=== PATIENT | female | born 1955 | race Caucasian/White ===

== ENCOUNTER → 2017-01-20 | Outpatient (CLI) | payer OTHER ==
[2017-01-20 06:42] LABS: MEAN CORPUSCULAR HEMOGLOBIN 32.3 pg (27.0-33.0); MEAN CORPUSCULAR HGB CONC 34.2 g/dl (32.0-36.5); MEAN CORPUSCULAR VOLUME 94.4 fl (80.0-96.0); RED CELL DISTRIBUTION WIDTH 11.5 % (11.5-14.5); WHITE BLOOD COUNT 8.5 K/mm3 (4.0-10.0)
[2017-01-20 07:12] LABS: ALBUMIN 3.7 GM/DL (3.2-5.2); ALBUMIN/GLOBULIN RATIO 1.37 (1.00-1.93); BILIRUBIN,TOTAL 0.3 MG/DL (0.2-1.0); CALCIUM LEVEL 8.4 MG/DL (8.8-10.2); CREATININE FOR GFR 1.01 MG/DL (0.55-1.02); FREE T4 1.04 NG/DL (0.76-1.46); GLOMERULAR FILTRATION RATE 59.1 (>45); POTASSIUM SERUM 4.2 MEQ/L (3.5-5.1); TOTAL PROTEIN 6.4 GM/DL (6.4-8.2)
== END ==
LOC: M LAB 06:00
PROVIDERS: ATTEND General Practice
DX: E78.00 Pure hypercholesterolemia, unspecified (principal); E55.9 Vitamin D deficiency, unspecified

== ENCOUNTER → 2017-06-27 | Outpatient (CLI) | payer OTHER ==
[~2017-06-27] MED LIST: COUM2.5T17 PO; FERR325T3 PO; LEVO25TA5 PO; LISI10TA4 PO; LUTE20TA PO; PERC5TAB12 PO; PROP60CA PO; PROZ20CA11 PO; SIMV40TA2 PO; VITA500T3 PO
[2017-06-27 11:50] LABS: MEAN CORPUSCULAR HEMOGLOBIN 30.8 pg (27.0-33.0); MEAN CORPUSCULAR HGB CONC 32.7 g/dl (32.0-36.5); RED CELL DISTRIBUTION WIDTH 11.6 % (11.5-14.5); WHITE BLOOD COUNT 3.7 10^3/uL (4.0-10.0)
--- NOTE | 2017-06-27 11:59 | REP ---
PA and lateral chest: There are no comparisons. The lung arreola are clear. Cardiac size is upper normal. The sendy, mediastinum, and bony thorax are unremarkable for patient age. Impression: Essentially negative PA and lateral chest. Signed by Prashant Singh MD 06/27/2017 11:51 A
[2017-06-27 12:02] LABS: INR 0.96
[2017-06-27 13:05] LABS: ALBUMIN 3.8 GM/DL (3.2-5.2); ALBUMIN/GLOBULIN RATIO 1.27 (1.00-1.93); ALKALINE PHOSPHATASE 99 U/L (45-117); ALT/SGPT 20 U/L (12-78); ANION GAP 3 MEQ/L (8-16); AST/SGOT 17 U/L (15-37); BILIRUBIN,TOTAL 0.6 MG/DL (0.2-1.0); BLOOD UREA NITROGEN 12 MG/DL (7-18); CALCIUM LEVEL 8.8 MG/DL (8.8-10.2); CARBON DIOXIDE LEVEL 33 MEQ/L (21-32); CHLORIDE LEVEL 106 MEQ/L (98-107); CREATININE FOR GFR 0.76 MG/DL (0.55-1.02); GLOMERULAR FILTRATION RATE > 60.0 (>45); GLUCOSE, FASTING 89 MG/DL (80-110); POTASSIUM SERUM 4.3 MEQ/L (3.5-5.1); SODIUM LEVEL 142 MEQ/L (136-145); TOTAL PROTEIN 6.8 GM/DL (6.4-8.2)
--- NOTE | 2017-06-27 20:20 | ECGEPIP ---
Stationary ECG Study [facility] Test Date: 2017-06-27 Pat Name: TARYN HAYWARD Department: Room: - Gender: F Singe Machine Operator: NIGEL : 1955 Requested By: Lili Monahan Order Number: [id number] Reading MD: Sonya Jennings Measurements Intervals [place] Rate: 56 P: 61 HI: 159 QRS: 2 QRSD: 88 T: 14 QT: 416 QTc: 404 Interpretive Statements SINUS BRADYCARDIA POOR R WAVE PROGRESSION NO PRIOR Electronically Signed On 06-27-2017 20:20:01 EDT by Sonya Jennings
== END ==
LOC: M ADMPAT 09:28
PROVIDERS: ATTEND Orthopaedic Surgery
DX: M17.11 Unilateral primary osteoarthritis, right knee (principal)

== ENCOUNTER 2017-07-10 07:30 | Inpatient (IN) | payer OTHER ==
[2017-06-27 10:14] VITALS: BP 162/90
--- NOTE | 2017-07-06 14:11 | HPE ---
DATE OF ADMISSION: 07/10/2017 ATTENDING PHYSICIAN: Lili Douglas MD DIAGNOSIS: Osteoarthritis right knee and right knee pain and stiffness. HISTORY: This is a pleasant 62-year-old female patient with progressively worsening right knee pain and stiffness. She failed to improve with conservative management. She has elected for surgery for her continued symptoms. She has pain with weightbearing activities and activities of daily living. She has consented for a right total knee arthroplasty by Dr. Douglas. X-rays of her knee are notable for end-stage degenerative changes of the left knee. ALLERGIES: Seafood. CURRENT MEDICATIONS: - lisinopril 10 mg one tablet once per day - propranolol ER 60 mg one tablet once per day - Zocor 10 mg one tablet at bedtime - Prozac 10 mg one tablet every day - [id number] vitamin D, vitamin B3 and a daily multilevel vitamin - Synthroid 88 mcg one tablet once per day MEDICAL HISTORY: Includes: Symptomatic osteoarthritis of the right knee. Hypothyroidism. Hypertension. B12 deficiency. Vitamin D deficiency. Depression. Elevated cholesterol. Anemia. SURGICAL HISTORY: Includes: Tonsillectomy. Mastectomy. Knee scope. Gastric bypass. SOCIAL HISTORY: She does not smoke. She occasionally uses alcohol. She is employed as a nurse. REVIEW OF SYSTEMS: Denies fever or chills. Denies chest pain, shortness breath or cough. Denies difficulty breathing. Denies abdominal pain. Denies nausea or vomiting. Has persistent pain in her right knee with weightbearing activities. Denies recent upper respiratory infection (URI) or urinary tract infection (UTI) symptoms. FAMILY HISTORY: Noncontributory. PHYSICAL EXAMINATION: Exam today reveals a well-nourished, well-developed alert female patient. Neck is supple without adenopathy or jugular venous distention (JVD). Lungs are clear to auscultation without rales or wheeze. Heart is regular rate and rhythm. Exam of the right knee reveals skin to be intact. No erythema, edema or ecchymosis. Patellar grind is irritable. Range of motion is irritable at the extremes of range of motion, but full range of motion knee on exam. Stable to varus and valgus stress. The skin is intact. No erythema, edema or ecchymosis. Abdomen bowel sounds are present. Current vital signs are height 64 inches, weight 184 pounds, temperature 97.3, blood pressure 130/68, pulse 60, respirations 12, BMI 31.3. LABORATORY DATA: Chest x-ray no acute cardiopulmonary process noted. EKG sinus trisha. WBC count of 3.7, RBC count of 4.1, hemoglobin 12.9, hematocrit 39.4, PT 12.9, INR 0.96. Urine culture no growth. Nasal culture normal darrell. Urinalysis within normal limits. Sed rate of 18, glucose 89, BUN 20, creatinine 0.76, sodium 142, potassium 4.3. IMPRESSION: Symptomatic osteoarthritis of right knee. PLAN: Consented for right total knee arthroplasty by Dr. Douglas.
[2017-07-10] VITALS (7 sets, daily range): BP systolic 128–160; BP diastolic 73–85
[~2017-07-10] VITALS: Ht 165.1 cm; Wt 81.6 kg
[~2017-07-10 07:30] MED LIST changes: -COUM2.5T17 PO; -PERC5TAB12 PO
[2017-07-10] MEDS ORDERED: ACETAMINOPHEN 500 MG TAB PO ONE (09:00)
[2017-07-10] MEDS ORDERED: LR 1,000 ML IV ONE (09:00)
[2017-07-10] MEDS ORDERED: LIDOCAINE 1% MDV 20ML VIAL SC ONE (09:00)
[2017-07-10] MEDS ORDERED: EPINEPHrine INJ 1 MG/ML 1ML AMP As Ordered ONE (09:40)
[2017-07-10] MEDS ORDERED: TRANEXAMIC ACID 100 MG/ML 10ML VIAL As Ordered ONE (09:40)
[2017-07-10] MEDS ORDERED: ceFAZolin 1GM INJ (J0690) As Ordered ONE (09:40)
[2017-07-10] MEDS ORDERED: BUPIVACAINE LIPOSOME/PF 1.3% 20 ML VIAL (13.3MG/ML)(EXPAREL) As Ordered ONE (09:41)
[2017-07-10] MEDS ORDERED: MIDAZOLAM INJ 2 MG/2 ML VIAL (J2250) As Ordered ONE ×3 (09:46→10:19)
[2017-07-10] MEDS ORDERED: fentaNYL 100 MCG/2 ML INJECTION (J3010) As Ordered ONE ×3 (09:46→10:19)
[2017-07-10] MEDS ORDERED: PROPOFOL 200 MG/20 ML VIAL As Ordered ONE ×2 (10:08→12:19)
[2017-07-10] MEDS ORDERED: LIDOCAINE 2% INJ 100 MG/5 ML SDV (FOR ANES.) As Ordered ONE (10:08)
[2017-07-10] MEDS ORDERED: fentaNYL 100 MCG/2 ML INJECTION (J3010) IV ONE (10:45)
[2017-07-10] MEDS ORDERED: MIDAZOLAM INJ 2 MG/2 ML VIAL (J2250) IV ONE (10:45)
[2017-07-10] MEDS ORDERED: ONDANSETRON 4MG/2ML VIAL (J2405) As Ordered ONE (11:34)
[2017-07-10] MEDS ORDERED: dexameTHASONE 4 MG/ML 1ML VIAL (J1100) As Ordered ONE (11:34)
[2017-07-10] MEDS ORDERED: MORPHINE 1MG/ML IN 0.9% NACL 100ML IV BAG As Ordered ONE (12:30)
--- NOTE | 2017-07-10 12:58 | RO ---
DATE OF PROCEDURE: 07/10/2017 PREPROCEDURE DIAGNOSIS: Right knee degenerative arthritis. POSTPROCEDURE DIAGNOSIS: Right knee degenerative arthritis. PROCEDURE: Right total knee arthroplasty using a size 2.5 cruciate-retaining femoral component, size 2.5 tibial tray with a 10 mm rotating-platform polyethylene insert and a 32 mm polyethylene button. The prosthesis was made by [employer]. It was a PFC knee. SURGEON: Lili Douglas MD COMPUTER DISCOVERY TEACHER: Tyrone Argueta PA-C ANESTHESIA: Spinal with right femoral nerve block. COMPLICATIONS: None. ESTIMATED BLOOD LOSS: Less than 20 mL. SPECIMENS: Joint surface. DESCRIPTION OF PROCEDURE: Antibiotics were given intravenously preoperatively and a successful right femoral nerve block and a spinal anesthetic was induced, the tourniquet was placed on the right upper thigh and not inflated. The right lower extremity was then prepped and draped in the usual sterile fashion. The leg was elevated. After appropriate time-out, the tourniquet was inflated, and then a longitudinal incision was made for a medial parapatellar approach to the knee. Bovie cautery was used to coagulate crossing vessels. A medial parapatellar arthrotomy was then performed. Subperiosteal dissection around the proximal medial and lateral tibial plateau was performed. Then, we everted the patella and flexed the knee. The drill placed down the center of the femoral canal with the distal femoral cutting jig set at a 5-degree valgus cut, 10-mm resection level for a right knee. It was pinned in position. Distal femoral cut performed. AP sizing jig measured for a size 2.5 prosthesis. 3-degree external rotation block was pinned into position appropriately and then the 4-in-1 block applied and the anterior, posterior chamfer cuts performed, taking great care to protect the surrounding soft tissues. We then exposed the proximal tibia and used extramedullary guide to estimate being parallel to the mechanical axis. We referenced off the medial tibial condyle. 4 mm resection level. The block was pinned into position. Extramedullary anson used to secondarily check our alignment and we appeared to be parallel to the mechanical access. Proximal tibial osteotomy was then performed. Then we placed the lamina senior ux designer medially, performed a completion of lateral meniscectomy, debriding the posterior and lateral osteophytes, and then we placed the lamina senior ux designer laterally, and performed a completion medial meniscectomy with debridement of the posterior and lateral osteophytes. The spacer block was snug at 10 mm. Thus I elected to take it in both flexion and in extension such that I decided to take more proximal tibial bone. The jig was reapplied and we took an additional 4 mm. This allowed the 10 mm block to fit nicely with good stability in varus and valgus stress testing, both in flexion and in extension. We then everted the patella, flexed the knee and sized the tibial tray at #2.5, pinned into position, followed by the reamer and broach, and then the trial polyethylene and the trial femoral component, which fit very nicely. Brought the knee out into extension, everted the patella, performed patellar osteotomy, sized for a 32 button. The trial prosthesis was applied and patellofemoral tracking was anatomic. We then drilled the lug holes for the femur, removed all the trial components, copiously irrigated the knee joint out and instilled Exparel into the posterior capsule of the medial and lateral periosteum of the femur and the tibial. Then my nursing home assistant, Mr. Tyrone Argueta, mixed the cement on the back table as I prepared the bony surfaces for cementing with a copious amount of pulsatile lavage irrigant solution and then dried everything thoroughly. Mr. Argueta was also critical to the success of the operation by helping to manipulate the knee, helped to close the wound, helped to prepare the patient, amongst many other tasks throughout the operation. We then cemented the tibial tray, removed excess cement, placed the polyethylene, cemented the femoral component, removed excess cement, brought the knee into extension. With the knee in extension, I then cemented the patellar button in position and held it with the clamp. Removed excess cement, held that in position until the cement had hardened. Copious pulsatile lavage irrigated out the knee joint as we were waiting and then placed tranexamic acid in the joint and then began closing the apex of the wound with two #1 polydioxanone suture (PDS) sutures and one medial parapatellar suture was used, then a running #1 double-arm Stratafix was used to close the capsule. The tourniquet was then released and irrigated. The subdermal tissues were closed with interrupted #2-0 PDS sutures. The skin was closed with maximilian, covered by Adaptic dry sterile bulky dressing. She was then transferred to the recovery room in stable condition. There were no intraoperative complications.
[2017-07-10] MEDS ORDERED: ACETAMINOPHEN TAB 650MG DOSE (2X325MG) PO PRN (13:15)
[2017-07-10] MEDS: LR 1,000 ML IV SCH (13:15)
[2017-07-10] MEDS ORDERED: diphenhydrAMINE INJ 50MG/ML VIAL (J1200) IV PRN (13:15)
[2017-07-10] MEDS ORDERED: fentaNYL 100 MCG/2 ML INJECTION (J3010) IV PRN (13:15)
[2017-07-10] MEDS ORDERED: PERCOCET 5MG/325MG TAB PO PRN (13:15)
[2017-07-10] MEDS ORDERED: NALBUPHINE HCL 10 MG/ML AMP (J2300) IV PRN (13:15)
[2017-07-10] MEDS ORDERED: ONDANSETRON 4MG/2ML VIAL (J2405) IV PRN ×2 (13:15)
[2017-07-10] MEDS ORDERED: METOCLOPRAMIDE INJ 10MG/2ML VIAL (J2765) IV PRN (13:15)
[2017-07-10] MEDS ORDERED: MORPHINE 1MG/ML IN 0.9% NACL 100ML IV BAG IV PRN (13:15)
[2017-07-10] MEDS ORDERED: EPIDURAL/PCA KEYS XX PRN (13:15)
[2017-07-10] MEDS ORDERED: LR 1,000 ML IV SCH (13:15)
[2017-07-10] MEDS ORDERED: MORPHINE 2 MG/ML 1ML SYRINGE IV PRN (13:15)
[2017-07-10] MEDS ORDERED: FLEET ENEMA PR PRN (13:15)
[2017-07-10] MEDS ORDERED: NALOXONE INJ 0.4 MG/1 ML VIAL (J2310) IV PRN (13:15)
--- NOTE | 2017-07-10 13:38 | CR.PDOC ---
[facility] Consultation Consultation DATE OF CONSULTATION: 07/10/2017 at 1:34PM PRIMARY CARE PHYSICIAN: Dr. Ham REASON FOR CONSULTATION/CHIEF COMPLAINT: Presented to [facility] for an elective right knee total arthroplasty, HISTORY OF PRESENT ILLNESS: Patient is a 62 year old female with a PMHx of HTN, DLP, Hypothyroidism, Anemia (B12 deficiency and Iron deficiency anemia), Osteoarthritis of knees, and Fibromyalgia who presented to [facility] for an elective total right knee arthroplasty. Patient was seen by Dr. Ham in [place], [place] for medical clearance 1 week ago. She received blood work, a CXR and an EKG and was cleared for surgery. Patient noted that her knees have been bothering her for some time. She has taken Tylenol and Alieve without relief. She has received injections of lubricants in her knee and in a corticosteroid injection in her right knee that only provided temporary relief. She was noting difficulty with going up stairs and getting up from a sitting position. Patient was seen post-operatively. She denies any chest pain, shortness of breath, palpitations, nausea, vomiting, abdominal pain, constipation, diarrhea or dysuria. She denies any recent fever or chills. She does note a cough that occurs occasionally. ALLERGIES: Please see below. HOME MEDICATIONS: Please see below. PAST MEDICAL HISTORY: HTN, DLP, Hypothyroidism, Anemia (B12 deficiency and Iron deficiency anemia), Osteoarthritis of knees, and Fibromyalgia PAST SURGICAL HISTORY: Tonsillectomy (Age 5) Bilateral mastectomy (2010) with reconstruction, Done prophylactically given family history and positive BRCA gene Right knee arthroscopy, no intervention [id number]) Gastric bypass (2001); FAMILY HISTORY: - Mother with history of ovarian cancer - Father with history of pulmonary fibrosis SOCIAL HISTORY: - Denies the use of tobacco or illicit drugs; Social alcohol use - Denies recent travel or sick contacts - 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 ASSESSMENT/PLAN: Right knee pain - likely 2/2 osteoarthritis - s/p Total right knee arthroplasty (POD#0) - Failed medical management; having difficulty with ADLs - Pain control and anticoagulation as per surgical team HTN - BP well controlled - c/w Propraonol; will hold Lisinopril pending AM lab work DLP - c/w Simvastatin Hypothyroidism - c/w Levothyroxine Anemia (B12 deficiency and Iron deficiency anemia) - c/w B12 supplement and ferrous sulfate supplement Fibromyalgia - c/w Fluoxetine DVT prophylaxis - Anticoagulation as per primary team Vital Signs/I&O Vital Signs Date Time Temp Pulse Resp B/P (MAP) Pulse Ox O2 Delivery O2 Flow Rate FiO2 07/10/17 13:05 64 16 150/67 (94) 97 Room Air 07/10/17 12:52 97.5 07/10/17 10:47 2 I&O- Last 24 Hours up to 6 AM 07/11/17 06:00 Intake Total 1400 ml Output Total 370 ml Balance 1030 ml Allergies Coded Allergies: Shellfish-derived Products (Verified Allergy, Severe, ANAPHYLAXIS, ) ENVIROMENTAL (Verified Allergy, Unknown, 06/27/17) Home Medications Scheduled Cyanocobalamin (Vitamin B-12) 500 Mcg Tab, 1,000 MCG PO DAILY, (Reported) Ferrous Sulfate (Ferrous Sulfate) 325 Mg Tab, 325 MG PO DAILY, (Reported) Fluoxetine HCl (Prozac) 20 Mg Cap, 20 MG PO DAILY, (Reported) Levothyroxine Sodium (Synthroid) 25 Mcg Tab, 0.05 MG PO DAILY, (Reported) Lisinopril (Lisinopril) 10 Mg Tab, 10 MG PO DAILY, (Reported) Propranolol HCl (Propranolol HCl ER) 60 Mg Cap, 60 MG PO DAILY, (Reported) Simvastatin - High Dose (Simvastatin) 40 Mg Tab, 20 MG PO DAILY, (Reported) Vegetable Enzyme (Lutein) 20 Mg Tab, 20 MG PO DAILY, (Reported) GERONIMO WESTON MD Jul 10, 2017 13:37
[2017-07-10] MEDS ORDERED: dexameTHASONE 10 MG/1 ML VIAL PRES.FREE (J1100) ONE (14:26)
[2017-07-10] MEDS ORDERED: ROPIvacaine 0.5% 30 ML INJECTION (J2795) ONE (14:26)
[2017-07-10] MEDS: PROPRANOLOL 60 MG LA CAP PO SCH (16:26)
[2017-07-10] MEDS ORDERED: WARFARIN SOD 5 MG TAB PO ONE (17:00)
[2017-07-10] MEDS: SIMVASTATIN 20 MG TAB PO SCH (20:21)
[2017-07-10] MEDS: FERROUS SULFATE 325MG TAB PO SCH (20:21)
[2017-07-10] MEDS: CYANOCOBALAMIN 500 MCG TAB PO SCH (20:21)
[2017-07-11] MEDS: LR 1,000 ML IV SCH (01:45)
[2017-07-11] MEDS: LEVOTHYROXINE 50MCG TABLET (0.05MG) PO SCH (05:43)
[2017-07-11 06:00] VITALS: BP 118/64
[2017-07-11] MEDS ORDERED: ONDANSETRON 4 MG TAB (S0181) PO PRN (06:45)
[2017-07-11] MEDS ORDERED: PERCOCET 5MG/325MG TAB PO PRN (06:45)
[2017-07-11 07:04] LABS: BASO % 0.1 % (0.0-1.0); IMMATURE GRANULOCYTE % 0.5 % (0-0); LYMPH # 0.7 10^3/uL (1.5-4.5); LYMPH % 6.8 % (24.0-44.0); MEAN CORPUSCULAR HEMOGLOBIN 30.7 pg (27.0-33.0); MEAN CORPUSCULAR HGB CONC 32.4 g/dl (32.0-36.5); MEAN CORPUSCULAR VOLUME 94.7 fl (80.0-96.0); MONO # 1.4 10^3/uL (0.0-0.8); MONO % 12.7 % (0.0-5.0); NEUTROPHILS # 8.6 10^3/uL (1.8-7.7); NEUTROPHILS % 79.9 % (36.0-66.0); PLATELET COUNT, AUTOMATED 204 10^3/uL (150-450); RED CELL DISTRIBUTION WIDTH 11.6 % (11.5-14.5); WHITE BLOOD COUNT 10.7 10^3/uL (4.0-10.0)
[2017-07-11 07:17] LABS: INR 1.32
[2017-07-11 07:34] LABS: ALBUMIN 3.1 GM/DL (3.2-5.2); ALBUMIN/GLOBULIN RATIO 1.07 (1.00-1.93); ALKALINE PHOSPHATASE 77 U/L (45-117); ALT/SGPT 16 U/L (12-78); ANION GAP 3 MEQ/L (8-16); AST/SGOT 17 U/L (15-37); BILIRUBIN,TOTAL 0.3 MG/DL (0.2-1.0); BLOOD UREA NITROGEN 15 MG/DL (7-18); CALCIUM LEVEL 8.5 MG/DL (8.8-10.2); CARBON DIOXIDE LEVEL 31 MEQ/L (21-32); CHLORIDE LEVEL 106 MEQ/L (98-107); CREATININE FOR GFR 0.93 MG/DL (0.55-1.02); GLOMERULAR FILTRATION RATE > 60.0 (>45); GLUCOSE, FASTING 116 MG/DL (80-110); MAGNESIUM LEVEL 2.3 MG/DL (1.8-2.4); POTASSIUM SERUM 3.9 MEQ/L (3.5-5.1); SODIUM LEVEL 140 MEQ/L (136-145)
[2017-07-11] MEDS: MOM 30ML SUSPENSION UDC PO SCH ×2 (09:00→09:55)
[2017-07-11] MEDS: MIRALAX *UNIT DOSE* 17GM PACKET PO SCH ×2 (09:00→09:56)
[2017-07-11] MEDS: SENOKOT S TAB PO SCH ×2 (09:56→20:41)
[2017-07-11] MEDS: FLUoxetine 20 MG CAP PO SCH (09:56)
[2017-07-11] MEDS: PROPRANOLOL 60 MG LA CAP PO SCH (09:56)
[2017-07-11] MEDS: PERCOCET 5MG/325MG TAB PO PRN ×4 (09:57→23:41)
[2017-07-11 10:00] VITALS: BP 115/66
[2017-07-11 14:00] VITALS: BP 111/69
[2017-07-11] MEDS ORDERED: WARFARIN SOD 5 MG TAB PO ONE (17:00)
[2017-07-11] MEDS: FERROUS SULFATE 325MG TAB PO SCH (20:40)
[2017-07-11] MEDS: CYANOCOBALAMIN 500 MCG TAB PO SCH (20:41)
[2017-07-11] MEDS: SIMVASTATIN 20 MG TAB PO SCH (20:41)
[2017-07-11 22:00] VITALS: BP 114/57
[2017-07-12] MEDS: PERCOCET 5MG/325MG TAB PO PRN ×3 (04:37→12:49)
--- NOTE | 2017-07-12 05:27 | REP ---
Clinical: Status post knee replacement. Technique AP and cross-table lateral views. Findings: The patient is status post right knee replacement with normal positioning and appearance to the femoral and tibial components. Overlying postsurgical changes appreciated. Impression: Status post right knee replacement. Signed by Davonte Yu MD 07/12/2017 05:19 A
[2017-07-12] MEDS: LEVOTHYROXINE 50MCG TABLET (0.05MG) PO SCH (05:28)
[2017-07-12 06:00] VITALS: BP 129/65
[2017-07-12 06:41] LABS: BASO % 0.2 % (0.0-1.0); EOS % 0.3 % (0.0-3.0); IMMATURE GRANULOCYTE % 0.5 % (0-0); LYMPH # 0.8 10^3/uL (1.5-4.5); LYMPH % 8.7 % (24.0-44.0); MEAN CORPUSCULAR HGB CONC 32.8 g/dl (32.0-36.5); MEAN CORPUSCULAR VOLUME 94.7 fl (80.0-96.0); MONO # 1.5 10^3/uL (0.0-0.8); MONO % 16.9 % (0.0-5.0); NEUTROPHILS # 6.3 10^3/uL (1.8-7.7); NEUTROPHILS % 73.4 % (36.0-66.0); PLATELET COUNT, AUTOMATED 185 10^3/uL (150-450); RED CELL DISTRIBUTION WIDTH 11.7 % (11.5-14.5); WHITE BLOOD COUNT 8.6 10^3/uL (4.0-10.0)
[2017-07-12 06:52] LABS: INR 1.98
[2017-07-12 06:59] LABS: ALBUMIN 2.9 GM/DL (3.2-5.2); ALBUMIN/GLOBULIN RATIO 0.91 (1.00-1.93); ALKALINE PHOSPHATASE 73 U/L (45-117); ALT/SGPT 11 U/L (12-78); ANION GAP 4 MEQ/L (8-16); AST/SGOT 16 U/L (15-37); BILIRUBIN,TOTAL 0.3 MG/DL (0.2-1.0); BLOOD UREA NITROGEN 18 MG/DL (7-18); CALCIUM LEVEL 8.4 MG/DL (8.8-10.2); CARBON DIOXIDE LEVEL 30 MEQ/L (21-32); CHLORIDE LEVEL 107 MEQ/L (98-107); CREATININE FOR GFR 0.77 MG/DL (0.55-1.02); GLOMERULAR FILTRATION RATE > 60.0 (>45); GLUCOSE, FASTING 108 MG/DL (80-110); MAGNESIUM LEVEL 2.2 MG/DL (1.8-2.4); POTASSIUM SERUM 3.7 MEQ/L (3.5-5.1); SODIUM LEVEL 141 MEQ/L (136-145); TOTAL PROTEIN 6.1 GM/DL (6.4-8.2)
[2017-07-12] MEDS ORDERED: COUM2.5T17 PO (07:58)
[2017-07-12] MEDS ORDERED: PERC5TAB12 PO (07:58)
[2017-07-12] MEDS: SENOKOT S TAB PO SCH (08:45)
[2017-07-12 08:46] VITALS: BP 129/65
[2017-07-12] MEDS: MIRALAX *UNIT DOSE* 17GM PACKET PO SCH (08:46)
[2017-07-12] MEDS: FLUoxetine 20 MG CAP PO SCH (08:46)
[2017-07-12] MEDS: MOM 30ML SUSPENSION UDC PO SCH (08:46)
[2017-07-12] MEDS: PROPRANOLOL 60 MG LA CAP PO SCH (08:46)
[2017-07-12 10:34] VITALS: O2SAT 95
[2017-07-12] MEDS ORDERED: WARFARIN SOD 2.5 MG TAB PO ONE (17:00)
--- NOTE | 2017-07-14 16:59 | DSES ---
DATE OF ADMISSION: 07/10/2017 DATE OF DISCHARGE: 07/12/2017 DISCHARGE DIAGNOSIS: Right knee arthritis status post right total knee arthroplasty. HISTORY: This is a 62-year-old female with progressively worsening right knee pain and stiffness. She has failed to improve with conservative treatment. She elected for surgery for her continued symptoms. PROCEDURE PERFORMED: Right total knee arthroplasty. HOSPITAL COURSE: The patient was admitted on the day of surgery and underwent right total knee arthroplasty without complications. Afterward, the patient was up with physical therapy per the protocol. Her pain was controlled. She was weightbearing as tolerated using a walker. DISCHARGE INSTRUCTIONS: Patient will resume preoperative medications and diet. She will use oral medications for pain control. She will use Coumadin and thromboembolic deterrent (WILLIE) stockings for 30 days postoperatively for deep vein thrombosis (DVT) prophylaxis. She will followup in the office in 2 weeks for wound check and staple removal.
== END 2017-07-12 15:45 | disposition home health service (06) | DRG 470 ==
LOC: M OR 08:41 → M MS5PR 13:45
PROVIDERS: ADMIT Orthopaedic Surgery; ATTEND Orthopaedic Surgery
PROC: 0SRC0J9 Replacement of Right Knee Joint with Synthetic Substitute, Cemented, Open Approach (ICD-10-PCS; principal; 2017-07-10 10:45)
DX: M17.11 Unilateral primary osteoarthritis, right knee (principal); Z91.013 Allergy to seafood; E03.9 Hypothyroidism, unspecified; E55.9 Vitamin D deficiency, unspecified; E53.8 Deficiency of other specified B group vitamins; E78.00 Pure hypercholesterolemia, unspecified; D50.9 Iron deficiency anemia, unspecified; M79.7 Fibromyalgia; Z79.899 Other long term (current) drug therapy

== ENCOUNTER → 2017-07-13 | Outpatient (REF) | payer OTHER ==
[~2017-07-13] MED LIST changes: +COUM2.5T17 PO; +PERC5TAB12 PO
[2017-07-13 14:26] LABS: INR 2.06
== END ==
LOC: M LAB REF 14:00 → M SHH 14:00
PROVIDERS: ATTEND Internal Medicine
DX: Z79.01 Long term (current) use of anticoagulants (principal)

== ENCOUNTER → 2017-07-17 | Outpatient (REF) | payer OTHER ==
[2017-07-17 15:05] LABS: INR 1.97
== END ==
LOC: M SHH 13:42
PROVIDERS: ATTEND Nurse Practitioner Family
DX: Z79.01 Long term (current) use of anticoagulants (principal)

== ENCOUNTER → 2017-07-20 | Outpatient (REF) | payer OTHER ==
[2017-07-20 14:55] LABS: INR 1.99
== END ==
LOC: M SHH 14:16
PROVIDERS: ATTEND Nurse Practitioner Family
DX: Z79.01 Long term (current) use of anticoagulants (principal)

== ENCOUNTER → 2017-08-03 | Outpatient (REF) | payer OTHER ==
[2017-08-03 14:22] LABS: INR 1.72
== END ==
LOC: M SHH 14:03
PROVIDERS: ATTEND Nurse Practitioner Family
DX: Z51.81 Encounter for therapeutic drug level monitoring (principal); Z79.01 Long term (current) use of anticoagulants

== ENCOUNTER → 2018-06-19 | Outpatient (CLI) | payer OTHER ==
[2018-06-19 08:03] LABS: HEMATOCRIT 37.8 % (36.0-47.0); HEMOGLOBIN 12.5 g/dl (12.0-15.5); MEAN CORPUSCULAR HEMOGLOBIN 30.6 pg (27.0-33.0); MEAN CORPUSCULAR HGB CONC 33.1 g/dl (32.0-36.5); MEAN CORPUSCULAR VOLUME 92.4 fl (80.0-96.0); PLATELET COUNT, AUTOMATED 267 10^3/uL (150-450); RED BLOOD COUNT 4.09 10^6/uL (4.00-5.40); RED CELL DISTRIBUTION WIDTH 11.5 % (11.5-14.5); WHITE BLOOD COUNT 3.9 10^3/uL (4.0-10.0)
[2018-06-19 08:41] LABS: ALBUMIN/GLOBULIN RATIO 1.67 (1.00-1.93); ALKALINE PHOSPHATASE 99 U/L (45-117); ALT/SGPT 15 U/L (12-78); ANION GAP 6 MEQ/L (8-16); AST/SGOT 16 U/L (7-37); BILIRUBIN,TOTAL 0.4 MG/DL (0.2-1.0); BLOOD UREA NITROGEN 12 MG/DL (7-18); CALCIUM LEVEL 9.1 MG/DL (8.8-10.2); CARBON DIOXIDE LEVEL 31 MEQ/L (21-32); CHLORIDE LEVEL 108 MEQ/L (98-107); CHOLESTEROL LEVEL 150 MG/DL (<200); CHOLESTEROL RISK RATIO 2.727 (<5); CREATININE FOR GFR 0.85 MG/DL (0.55-1.30); FREE T4 1.13 NG/DL (0.76-1.46); GLOMERULAR FILTRATION RATE > 60.0 (>45); GLUCOSE, FASTING 97 MG/DL (70-100); HDL CHOLESTEROL 55 MG/DL (>40); LDL CHOLESTEROL 69 MG/DL (<100); NON-HDL-C 95 MG/DL; POTASSIUM SERUM 4.3 MEQ/L (3.5-5.1); SODIUM LEVEL 145 MEQ/L (136-145); TOTAL PROTEIN 6.4 GM/DL (6.4-8.2); TRIGLYCERIDES LEVEL 132 MG/DL (<150)
[2018-06-19 13:27] LABS: VITAMIN B12 LEVEL > 2000 PG/ML (247-911)
[2018-06-21 14:17] LABS: VITAMIN D 1,25 DIHYDROXY 61.1 pg/mL (19.9-79.3)
== END ==
LOC: M LAB 07:32
DX: E53.8 Deficiency of other specified B group vitamins (principal); E78.00 Pure hypercholesterolemia, unspecified; E03.9 Hypothyroidism, unspecified; D64.9 Anemia, unspecified; E55.9 Vitamin D deficiency, unspecified

== ENCOUNTER → 2018-08-30 | Outpatient (REF) | payer OTHER | LOC: M SFHCPLAZ 17:08 | DX: L57.0 Actinic keratosis (principal); L30.9 Dermatitis, unspecified | CPT/HCPCS: 87529 ==

== ENCOUNTER → 2018-12-28 | Outpatient (REF) | payer OTHER ==
[2018-12-28 12:10] LABS: HEMATOCRIT 37.2 % (36.0-47.0); HEMOGLOBIN 12.2 g/dl (12.0-15.5); MEAN CORPUSCULAR HEMOGLOBIN 32.6 pg (27.0-33.0); MEAN CORPUSCULAR HGB CONC 32.8 g/dl (32.0-36.5); MEAN CORPUSCULAR VOLUME 99.5 fl (80.0-96.0); PLATELET COUNT, AUTOMATED 213 10^3/uL (150-450); RED BLOOD COUNT 3.74 10^6/uL (4.00-5.40); WHITE BLOOD COUNT 3.6 10^3/uL (4.0-10.0)
[2018-12-28 12:33] LABS: ALBUMIN 4.1 GM/DL (3.2-5.2); ALT/SGPT 18 U/L (12-78); BILIRUBIN,TOTAL 0.4 MG/DL (0.2-1.0); BLOOD UREA NITROGEN 14 MG/DL (7-18); CALCIUM LEVEL 8.9 MG/DL (8.8-10.2); CARBON DIOXIDE LEVEL 29 MEQ/L (21-32); CHLORIDE LEVEL 104 MEQ/L (98-107); CHOLESTEROL LEVEL 193 MG/DL (<200); CHOLESTEROL RISK RATIO 3.509 (<5); CREATININE FOR GFR 0.74 MG/DL (0.55-1.30); FREE T4 1.29 NG/DL (0.76-1.46); GLOMERULAR FILTRATION RATE > 60.0 (>45); GLUCOSE, FASTING 94 MG/DL (70-100); HDL CHOLESTEROL 55 MG/DL (>40); LDL CHOLESTEROL 117 MG/DL (<100); NON-HDL-C 138 MG/DL; SODIUM LEVEL 141 MEQ/L (136-145); TOTAL PROTEIN 6.8 GM/DL (6.4-8.2); TRIGLYCERIDES LEVEL 107 MG/DL (<150); VITAMIN B12 LEVEL 781 PG/ML (247-911)
== END ==
LOC: M LABDRAW1 11:43
PROVIDERS: ATTEND General Practice
DX: E78.00 Pure hypercholesterolemia, unspecified (principal); D64.9 Anemia, unspecified; E55.9 Vitamin D deficiency, unspecified; E03.9 Hypothyroidism, unspecified

== ENCOUNTER → 2019-03-14 | Outpatient (CLI) | payer OTHER ==
[~2019-03-14] MED LIST changes: +lutein PO
[2019-03-14 10:09] LABS: HEMOGLOBIN 12.3 g/dl (12.0-15.5); MEAN CORPUSCULAR HEMOGLOBIN 31.9 pg (27.0-33.0); MEAN CORPUSCULAR HGB CONC 32.4 g/dl (32.0-36.5); MEAN CORPUSCULAR VOLUME 98.4 fl (80.0-96.0); PLATELET COUNT, AUTOMATED 244 10^3/uL (150-450); RED BLOOD COUNT 3.86 10^6/uL (4.00-5.40); WHITE BLOOD COUNT 3.1 10^3/uL (4.0-10.0)
[2019-03-14 10:16] LABS: INR 1.06; PROTHROMBIN TIME 13.5 SECONDS (11.8-14.0)
[2019-03-14 10:33] LABS: ALBUMIN 3.6 GM/DL (3.2-5.2); ALT/SGPT 18 U/L (12-78); BILIRUBIN,TOTAL 0.5 MG/DL (0.2-1.0); BLOOD UREA NITROGEN 13 MG/DL (7-18); CALCIUM LEVEL 8.7 MG/DL (8.8-10.2); CARBON DIOXIDE LEVEL 32 MEQ/L (21-32); CHLORIDE LEVEL 108 MEQ/L (98-107); CREATININE FOR GFR 0.84 MG/DL (0.55-1.30); GLOMERULAR FILTRATION RATE > 60.0 (>45); GLUCOSE, FASTING 88 MG/DL (70-100); POTASSIUM SERUM 4.1 MEQ/L (3.5-5.1); SODIUM LEVEL 143 MEQ/L (136-145); TOTAL PROTEIN 6.4 GM/DL (6.4-8.2)
--- NOTE | 2019-03-14 11:14 | REP ---
PA and lateral chest: Comparison is 06/27/2017. The lung arreola are clear. The cardiac size is normal. The sendy, mediastinum, and skeletal structures are unremarkable. Impression: Negative PA and lateral chest. There is no interval change. Electronically Signed by Prashant Singh MD 03/14/2019 11:05 A
[2019-03-14 11:15] LABS: ERYTHROCYTE SEDIMENTATION RATE 21 mm/hr (0-30)
--- NOTE | 2019-03-14 17:13 | ECGEPIP ---
[facility] Test Date: 2019-03-14 Pat Name: TARYN HAYWARD Department: Room: - Gender: Female An/Syq 13 Nav/C2 Operator: RUBI : 1955 Requested By: Lili Monahan Order Number: [id number] Reading MD: Librado Hammond Measurements Intervals [place] Rate: 57 P: 61 [place]: 176 QRS: 13 QRSD: 89 T: 22 QT: 418 QTc: 409 Interpretive Statements Sinus bradycardia Delayed anterior R wave progression Nonspecific T wave abnormality No significant change when compared to prior tracing of 06/27/2017 Electronically Signed on 03-14-2019 17:13:14 EDT by Librado Hammond
== END ==
LOC: M LAB 09:25
PROVIDERS: ATTEND Orthopaedic Surgery
DX: M17.12 Unilateral primary osteoarthritis, left knee (principal)

== ENCOUNTER → 2019-03-21 | Outpatient (REF) | payer OTHER ==
[2019-03-21 14:01] LABS: APPEARANCE, URINE CLEAR (CLEAR); BACTERIA, URINE AUTO NEGATIVE (NEGATIVE); BILIRUBIN, URINE AUTO NEGATIVE (NEGATIVE); BLOOD, URINE BLOOD 1+ (NEGATIVE); COLOR, URINE YELLOW (YELLOW); GLUCOSE, URINE (UA) AUTO NEGATIVE (NEGATIVE); KETONE, URINE AUTO NEGATIVE (NEGATIVE); LEUKOCYTE ESTERASE, URINE AUTO NEGATIVE (NEGATIVE); MUCUS, URINE SMALL (NEGATIVE); NITRITE, URINE AUTO NEGATIVE (NEGATIVE); PROTEIN, URINE AUTO NEGATIVE (NEGATIVE); RBC, URINE AUTO 12 /HPF (0-3); SPECIFIC GRAVITY URINE AUTO 1.015 (1.002-1.035); SQUAMOUS EPITHELIAL CELL UR AU 0 /HPF (0-6); WBC, URINE AUTO 1 /HPF (0-3)
== END ==
LOC: M LAB REF 12:52
PROVIDERS: ATTEND General Practice
DX: Z01.818 Encounter for other preprocedural examination (principal); N39.0 Urinary tract infection, site not specified

== ENCOUNTER 2019-04-02 07:04 | Inpatient (IN) | payer OTHER ==
--- NOTE | 2019-03-25 18:53 | HPE ---
DATE OF ADMISSION: 04/02/2019 HISTORY OF PRESENT ILLNESS: This is a pleasant female with continuing symptomatic left knee osteoarthritis. She has consented for left total knee arthroplasty per Dr. Hero Douglas. Medical optimization per Dr. Drew Ham. X-rays are consistent with advanced osteoarthritis. ALLERGIES: None known to drugs, but positive shellfish allergy. CURRENT MEDICATIONS: EpiPen 2 pack 0.3 solution auto inject one solution auto injected as needed. Propranolol HCl ER 60 mg capsule extended release 24-hour 1 capsule orally once a day. Levothyroxine sodium 50 mcg tablet 1 tablet on an empty stomach in the morning and orally once a day. Prozac 20 mg capsule 1 tablet orally once a day. Simvastatin 20 mg tablet 1 tablet orally once a day. Lisinopril 10 mg tablet 1 tablet orally once a day. Cephalexin 500 mg capsule 4 capsules prior to dental work orally as needed prior to dental work. MEDICAL PROBLEM LIST: Symptomatic left knee osteoarthritis. Hypothyroidism. Hypertension. B12 deficiency. Vitamin D deficiency. Depression. Sinusitis. Hypercholesteremia. Anemia. PAST SURGICAL HISTORY: Gastric bypass. Hysterectomy total. Mammoplasty reduction. Right knee replacement. SOCIAL HISTORY: Nonsmoker. Denies ethanol intake or illicit drugs. FAMILY HISTORY: Parents are both without any history of mental illness. REVIEW OF SYSTEMS: Denies chest pain, shortness of breath, dyspnea on exertion, fever, chills, malaise, upper respiratory or urinary tract symptoms. Chest x-ray, service date 03/14/2019, [facility] shows negative PA and lateral chest. There is no interval change. EKG service date 03/14/2019, sinus bradycardia, delayed anterior R-wave progression, Non-specific T-wave abnormality as read by Dr. Librado Hammond 03/14/2019. LABORATORY: Service date 03/14/2019 shows chloride level 108. Anion gap 3. Calcium level 8.7. White count 3.1, RBC 3.86. Mean corpuscular volume 98.4. Red cell distribution was 11.3. Otherwise remaining labs within normal limits. PHYSICAL EXAMINATION: BP 128/78. Pulse 62. Temperature 97.5. Height 65 inches. Weight 164 pounds 2 ounces. BMI 27.3. Respiration 14. This is a pleasant well-developed, well-nourished female in no acute distress. Alert and oriented times three. Mood and affect are appropriate. She is ambulating with favoring of her right lower extremity. She has antalgia about the left knee joint line. The joint lines with crepitance through flexion/extension, PFJ is congruent, static and dynamic. Negative popliteal fossa mass or pain. Knee range of motion is 0-90. Left hip range of motion is not grossly limited or irritable through internal and external range of motion. Bowels sounds soft, nontender times four. Chest rises symmetrically. Regular rate and rhythm. Lungs: Clear to auscultation. Neck: Supple. Negative JVD or bruits. Normocephalic. IMPRESSION: 1. Left knee symptomatic tricompartmental knee DJD. 2. Patient consented for a left total knee arthroplasty per Dr. Hero Douglas. 3. Medical optimization per Dr. Ham. 4. On-call to OR 2 grams IV Kefzol in OR. 5. SCD and TEDs in OR.
[~2019-04-02] VITALS: Ht 165.1 cm; Wt 74.4 kg
[~2019-04-02 07:04] MED LIST changes: +ACETAMINOPHEN 500 MG TAB PO ONE; +CYAN500T8 PO; +LR 1,000 ML IV ONE; +MIDAZOLAM INJ 2 MG/2 ML VIAL (J2250) IV SCH; -VITA500T3 PO; +fentaNYL 100 MCG/2 ML INJECTION (J3010) IV SCH
[2019-04-02] MEDS ORDERED: LUTE2000 PO (08:27)
[2019-04-02] MEDS ORDERED: fentaNYL 100 MCG/2 ML INJECTION (J3010) As Ordered ONE ×2 (08:57→11:40)
[2019-04-02] MEDS ORDERED: MIDAZOLAM INJ 2 MG/2 ML VIAL (J2250) As Ordered ONE ×2 (08:57→11:40)
[2019-04-02] MEDS ORDERED: FLUoxetine 20 MG CAP PO SCH (09:00)
[2019-04-02] MEDS ORDERED: fentaNYL 100 MCG/2 ML INJECTION (J3010) IV ONE (09:45)
[2019-04-02] MEDS ORDERED: MIDAZOLAM INJ 2 MG/2 ML VIAL (J2250) IV ONE (09:45)
[2019-04-02] MEDS ORDERED: TRANEXAMIC ACID 100 MG/ML 10ML VIAL As Ordered ONE (10:15)
[2019-04-02] MEDS ORDERED: BUPIVACAINE HCL 0.25% 30 ML VIAL As Ordered ONE (10:15)
[2019-04-02] MEDS ORDERED: ceFAZolin 1GM INJ (J0690 PER 500MG) As Ordered ONE (10:16)
[2019-04-02] MEDS ORDERED: BUPIVACAINE LIPOSOME/PF 1.3% 20ML VIAL (13.3MG/ML)(EXPAREL)(C9290 PER1MG) As Ordered ONE (10:16)
[2019-04-02] MEDS ORDERED: EPINEPHrine INJ 1 MG/ML 1ML AMP As Ordered ONE (10:16)
[2019-04-02] MEDS ORDERED: LIDOCAINE 1% MDV 20ML VIAL ONE (10:19)
[2019-04-02] MEDS ORDERED: dexameTHASONE 10 MG/1 ML VIAL PRES.FREE (J1100) ONE (10:19)
[2019-04-02] MEDS ORDERED: ROPIvacaine 0.5% 30 ML INJECTION (J2795 PER 1MG) ONE (10:19)
[2019-04-02] MEDS ORDERED: LIDOCAINE 2% INJ 100 MG/5 ML SDV (FOR ANES.) As Ordered ONE (11:40)
[2019-04-02] MEDS ORDERED: ONDANSETRON 4MG/2ML VIAL (J2405) As Ordered ONE (11:40)
[2019-04-02] MEDS ORDERED: PROPOFOL 500 MG/50 ML VIAL As Ordered ONE (11:40)
[2019-04-02] MEDS ORDERED: PROPOFOL 200 MG/20 ML VIAL As Ordered ONE ×2 (12:26→12:42)
[2019-04-02] MEDS ORDERED: ePHEDrine SULFATE 25 MG/5 ML(5MG/ML) SYRINGE As Ordered ONE (12:41)
[2019-04-02] MEDS ORDERED: PERCOCET 5MG/325MG TAB As Ordered ONE (13:39)
[2019-04-02] MEDS ORDERED: HYDROMORPHONE HCL 0.5 MG/ 0.5 ML SYRINGE (J1170 PER 1) IV PRN ×3 (13:45)
[2019-04-02] MEDS ORDERED: ONDANSETRON 4MG/2ML VIAL (J2405) IV PRN (13:45)
[2019-04-02] MEDS ORDERED: fentaNYL 100 MCG/2 ML INJECTION (J3010) IV PRN (13:45)
[2019-04-02] MEDS ORDERED: LR 1,000 ML IV SCH (13:45)
[2019-04-02] MEDS ORDERED: PERCOCET 5MG/325MG TAB PO PRN (13:45)
--- NOTE | 2019-04-02 13:56 | RO ---
DATE OF PROCEDURE: 04/02/2019 PREOPERATIVE DIAGNOSIS: Left knee degenerative arthritis. POSTOPERATIVE DIAGNOSIS: Left knee degenerative arthritis. PROCEDURE: Left knee replacement using a size 5 cruciate-retaining Attune femoral component cemented with a size 4 tibial tray with a 6 mm rotating-platform polyethylene insert and a 35 mm polyethylene button. The prosthesis was made by [employer]. All components were cemented. SURGEON: Lili Douglas MD CIGARETTE PACKAGE EXAMINER: Abiola Morgan ANESTHESIA: Spinal with left femoral nerve block. COMPLICATIONS: None. ESTIMATED BLOOD LOSS: 20 mL. SPECIMENS: Joint surface. DESCRIPTION OF PROCEDURE: Antibiotics were given intravenously preoperatively, and a successful left femoral nerve block and then a spinal anesthetic was induced. The tourniquet was placed on the left upper thigh and not inflated. The left lower extremity was carefully prepped and draped in the usual sterile fashion. The leg elevated. The tourniquet inflated. After appropriate time-out, a longitudinal incision was made for a medial parapatellar approach to the knee. Bovie cautery was used to coagulate crossing vessels. A medial parapatellar arthrotomy performed. Subperiosteal dissection around the proximal medial and lateral tibial plateaus performed. I everted the patella and flexed the knee, placed the drill down the center of the femoral canal, followed by the intramedullary anson set at a 5-degree valgus cut for a left knee at 9-mm resection level. The block was pinned into position and the distal femoral cut performed. AP sizing jig measured for a size 5. 3 degrees of external rotation were dialed in. The block was pinned. Anterior and posterior chamfer cuts performed. Then, the notchplasty performed using the jig. We then exposed the proximal tibia, used the extramedullary alignment jig to estimate being parallel to the mechanical axis, referencing off the medial tibial condyle, set the jig, and then drilled it into position. A secondary check of extramedullary anson confirmed we appeared to be parallel to the mechanical axis. The proximal tibial osteotomy was thus performed, and then the lamina infectious waste technician was placed laterally, and we performed a completion of medial meniscectomy, debriding the posterior and medial osteophytes, and then placed the lamina infectious waste technician medially, and performed a completion of lateral meniscectomy with debridement of the posterior and lateral osteophytes. The spacer blocks were then trialed, and she was very tight, was extremely tight in extension and very tight in flexion. Thus, I felt more distal femur was needed. Thus, we did reapply the distal femoral cutting jig using the bat-wing device to reset the pin in appropriate position. Then, the distal femoral cut performed. Then, we were still a bit snug in flexion, much better in extension, but still with just a slight bit of tightness. Thus, we were tight, therefore, both in flexion and extension. At this point, thus, I elected to take 2 more millimeters off the proximal tibia. The jig was reapplied and the proximal tibial osteotomy re-performed and debrided, and then the spacer applied to the block at 6 mm fit very nicely and symmetrically, both in flexion and in extension with good stability to varus and valgus and stress testing. The chamfer cuts at this point on the femur were then finalized by reapplying the 4-in-1 block. We then exposed the proximal tibia once again, sized for a #4 tibial tray, which was pinned into position, followed by the reamer and broach, followed by the trial 6 mm polyethylene, and then the trial femoral component, brought the knee into extension, everted the patella, and performed a patellar osteotomy. It was noteworthy that there were two very large discoid-type loose fragments attached to the superior pole of the patella that were measured, estimating about 2-3 cm in diameter. They were more like small thin wafers. These were removed with the rongeur. We sized for a 35 button. Lug holes were placed, and then the trial polyethylene applied, and the patellofemoral tracking was anatomic. We then drilled the lug holes for the femur, removed all the trial components, placed Exparel in the subperiosteal tissues around the distal femur and the proximal tibia, and then Ms. Abiola Morgan mixed the cement on the back table as I prepared the bony surfaces for cementing with a copious amount of pulsatile lavage irrigant solution. She was also critical to the success of this difficult surgery by helping to apply appropriate soft tissue retraction, helped to close the wound, helped to position the patient, helped to manipulate the knee as needed so I could perform the operation smoothly, efficiently, and safely. Once all the bony surfaces were thoroughly dried, we cemented the tibial tray, removed excess cement, placed the polyethylene, then we cemented the femoral component, removed excess cement, brought the knee into extension, cemented the patellar button, held it with a clamp until the cement had hardened with the knee in extension; and as we were awaiting this, we copiously pulsatile lavage irrigated out the knee joint and then applied tranexamic acid and then began closing the apex of the arthrotomy with two #1 polydioxanone suture (PDS) sutures. The medial parapatellar area was closed with a #1 PDS suture, and then a running double-arm #1 Stratafix used to close the capsule. Then, the tourniquet was released. We irrigated between layers, closed the deep subdermal tissues with interrupted 2-0 PDS sutures. The skin was closed with maximilian, covered by an Optifoam dry sterile bulky dressing. She was then transferred to the recovery room in stable condition. There were no intraoperative complications. ALEX
[2019-04-02] MEDS ORDERED: FLEET ENEMA PR PRN (14:45)
[2019-04-02] MEDS ORDERED: ACETAMINOPHEN TAB 650MG DOSE (2X325MG) PO PRN (14:45)
[2019-04-02 14:48] VITALS: BP 141/66
--- NOTE | 2019-04-02 14:50 | CR.PDOC ---
General Date of Consultation: Apr 02, 2019 Consultation CONSULT FOR: Hero Caputo orthopedic surgery REASON FOR CONSULT: Medical management HISTORY OF PRESENT ILLNESS: Patient is a 64-year-old female with a history of osteoarthritis she has a history of right total knee arthroplasty within the last 2 years. She has had progressively worsening left knee pain now which has failed conservative measures in the outpatient setting. She has been seen by orthopedic surgery in the outpatient setting and scheduled for elective total knee arthroplasty today. At the present time she tells me that her pain is controlled with Percocet, she tells me that she previously tolerated the replacement quite well and went home to quickly afterwards with minimal pain medication requirement. Otherwise patient denies weight loss, hair loss, headache, visual changes, chest pain, shortness of breath, cough, nausea, vomiting, diarrhea, abdominal pain, muscle aches, change in mood PAST MEDICAL HISTORY: 1. Fibromyalgia. 2., Osteoarthritis. 3. Hypertension 4. Hypothyroidism 5. Vitamin B12 deficiency 6. Vitamin D deficiency 7. Dyslipidemia 8. Anemia HOME MEDICATIONS: Please see below. ALLERGIES: Please see below PAST SURGICAL HISTORY: 1. Gastric bypass. 2. Total hysterectomy. 3. Mammoplasty with reduction. 4. Right total knee replacement SOCIAL HISTORY: Lives with: Independently and is independent of ADLs, Employment: [employer] consultant at [employer], Tobacco use: Denies. ETOH: Denies, Illicit drug use: Denies, Tattoos done unprofessionally: Denies.CODE STATUS: Full code FAMILY HISTORY:Reviewed and noncontributory REVIEW OF SYSTEMS: 10 systems reviewed and negative other than HPI PHYSICAL EXAMINATION: VITAL SIGNS: Temperature 97.7, pulse 58, respiratory rate 16, blood pressure 154/70, pulse oximetry 100% on room air. GENERAL: Pleasant female sitting up in bed awake alert oriented speaking in complete sentences no acute distress HEENT: Moist mucous membranes no elevation and CVP CARDIOVASCULAR: S1 S2 regular no additional heart sounds appreciated. RESPIRATORY: Clear to auscultation bilaterally. ABDOMINAL: Bowel sounds present abdomen soft and nontender, obese EXTREMITIES: No clubbing cyanosis or edema, dressing is clean dry and intact NEUROLOGICAL: Spontaneously moves all 4 extremities decreased range of motion of the left looks secondary to pain, cranial 2 through 12 grossly intact no gross focal deficits appreciated PSYCHOLOGICAL: Appropriate LABORATORY DATA: See below. MICROBIOLOGY: Please see below. IMAGING: Knee x-ray: Report pending ASSESSMENT & PLAN: This is a 64-year-old female with elective postop day 0 for left total knee arthroplasty. PROBLEMS: 1.Postop day 0 for left total knee arthroplasty: Management as per orthopedic surgery, pain control DVT prophylaxis activity perioperative management deferred to orthopedics. 2. Fibromyalgia: Continue with Prozac 3. Hypertension: Normally on propranolol and lisinopril I will continue these as she is hypertensive post procedurally and not complaining of pain 4. Hypothyroidism: Continue with Synthroid 5. Dyslipidemia: Continue simvastatin 6. Anemia: Recent blood work on the of last month she was not significantly anemic and she had some mild macrocytosis, continue with iron supplementation as well as B12 supplementation DVT PROPHYLAXIS: Patient is started on anticoagulation per orthopedic surgery Thank you for this interesting consult, we will continue to follow along with you. Please Vocera secure text or call with any specific questions. Vital Signs/I&O Vital Signs Date Time Temp Pulse Resp B/P (MAP) Pulse Ox O2 Delivery O2 Flow Rate FiO2 04/02/19 14:16 59 16 178/77 (110) 100 04/02/19 13:45 97.7 04/02/19 13:20 2 Allergies Coded Allergies: shellfish derived (Verified Allergy, Severe, ANAPHYLAXIS, 04/02/19) ENVIROMENTAL (Verified Allergy, Unknown, 04/02/19) Home Medications Scheduled Cyanocobalamin (Vitamin B-12) (Vitamin B-12) 500 Mcg Tab, 500 MCG PO DAILY, (Reported) Ferrous Sulfate (Ferrous Sulfate) 325 Mg Tab, 325 MG PO DAILY, (Reported) Fluoxetine HCl (Prozac) 20 Mg Cap, 20 MG PO DAILY, (Reported) Levothyroxine Sodium (Levothyroxine Sodium) 25 Mcg Tab, 0.88 MG PO DAILY, (Reported) Lisinopril (Lisinopril) 10 Mg Tab, 10 MG PO DAILY, (Reported) Lutein (Lutein) 20 Mg Capsule, 20 MG PO DAILY, (Reported) Propranolol HCl (Propranolol HCl ER) 60 Mg Cap, 60 MG PO DAILY, (Reported) Simvastatin (Simvastatin) 40 Mg Tab, 20 MG PO DAILY, (Reported) ANDREIA TRUONG MD Apr 02, 2019 14:50
--- NOTE | 2019-04-02 15:14 | REP ---
LEFT KNEE, THREE VIEWS: AP and lateral views of left knee performed. Metallic prosthesis is noted in the distal femur and proximal tibia. Metallic skin maximilian are seen anteriorly. The osseous structures are intact and well aligned. Electronically Signed by Prashant Tilley MD 04/04/2019 10:19 A
[2019-04-02 15:30] VITALS: BP 140/66
[2019-04-02] MEDS: FERROUS SULFATE 325MG TAB PO SCH (15:40)
[2019-04-02] MEDS: CYANOCOBALAMIN 500 MCG TAB PO SCH (15:40)
[2019-04-02] MEDS: LISINOPRIL 10 MG TAB PO SCH (15:40)
[2019-04-02] MEDS: LR 1,000 ML IV SCH (15:41)
[2019-04-02 16:24] VITALS: BP 123/58
[2019-04-02] MEDS: PERCOCET 5MG/325MG TAB PO PRN ×2 (17:18→22:20)
[2019-04-02 17:21] VITALS: BP 130/62
[2019-04-02] MEDS ORDERED: SIMVASTATIN 20 MG TAB PO SCH (21:00)
[2019-04-02 22:00] VITALS: BP 120/58
[2019-04-03 02:00] VITALS: BP 123/54
[2019-04-03] MEDS: PERCOCET 5MG/325MG TAB PO PRN ×3 (02:39→11:16)
[2019-04-03] MEDS: LR 1,000 ML IV SCH (03:15)
[2019-04-03 06:00] VITALS: BP 125/58
[2019-04-03] MEDS ORDERED: LEVOTHYROXINE 88MCG TABLET (0.088 MG) PO SCH (06:00)
[2019-04-03 06:46] LABS: HEMATOCRIT 33.8 % (36.0-47.0); MEAN CORPUSCULAR HEMOGLOBIN 32.6 pg (27.0-33.0); MEAN CORPUSCULAR HGB CONC 32.5 g/dl (32.0-36.5); MEAN CORPUSCULAR VOLUME 100.3 fl (80.0-96.0); PLATELET COUNT, AUTOMATED 206 10^3/uL (150-450); RED BLOOD COUNT 3.37 10^6/uL (4.00-5.40); WHITE BLOOD COUNT 11.4 10^3/uL (4.0-10.0)
[2019-04-03 07:09] LABS: BLOOD UREA NITROGEN 15 MG/DL (7-18); CALCIUM LEVEL 8.7 MG/DL (8.8-10.2); CARBON DIOXIDE LEVEL 31 MEQ/L (21-32); CHLORIDE LEVEL 106 MEQ/L (98-107); CREATININE FOR GFR 0.97 MG/DL (0.55-1.30); GLOMERULAR FILTRATION RATE > 60.0 (>45); GLUCOSE, FASTING 107 MG/DL (70-100); POTASSIUM SERUM 3.7 MEQ/L (3.5-5.1); SODIUM LEVEL 142 MEQ/L (136-145)
[2019-04-03] MEDS ORDERED: PERC5TAB12 PO (08:04)
[2019-04-03] MEDS ORDERED: XARE10TA PO (08:04)
[2019-04-03] MEDS: LISINOPRIL 10 MG TAB PO SCH (08:45)
[2019-04-03 08:46] VITALS: BP 125/58
[2019-04-03] MEDS: FERROUS SULFATE 325MG TAB PO SCH (08:47)
[2019-04-03] MEDS: CYANOCOBALAMIN 500 MCG TAB PO SCH (08:47)
[2019-04-03] MEDS ORDERED: PROPRANOLOL 60 MG LA CAP PO SCH (09:00)
[2019-04-03] MEDS ORDERED: FLUoxetine 20 MG CAP PO SCH (09:00)
[2019-04-03] MEDS ORDERED: MOM 30ML SUSPENSION UDC PO SCH (09:00)
[2019-04-03] MEDS ORDERED: MIRALAX *UNIT DOSE* 17GM PACKET PO SCH (09:00)
--- NOTE | 2019-04-03 10:20 | IPNPDOC ---
Date Seen The patient was seen on 04/03/19. Progress Note SUBJECTIVE: Tells me that she is feeling well, her pain is under control with Percocet and she is anticipating discharge home today she denies any chest pressure fevers chills shortness of breath nausea vomiting or diarrhea PHYSICAL EXAMINATION: VITAL SIGNS: Please see below GENERAL: Pleasant female sitting up in bed awake alert oriented speaking in complete sentences no acute distress HEENT: Moist mucous membranes no elevation in CVP CARDIOVASCULAR: S1 S2 regular no additional heart sounds appreciated. RESPIRATORY: Clear to auscultation bilaterally. ABDOMINAL: Bowel sounds present abdomen soft and nontender, obese EXTREMITIES: No clubbing cyanosis or edema NEUROLOGICAL: Spontaneously moves all 4 extremities decreased range of motion of the left looks secondary to pain, cranial 2 through 12 grossly intact no gross focal deficits appreciated, dressing is clean dry and intact PSYCHOLOGICAL: Appropriate LABORATORY DATA: See below. MICROBIOLOGY: Please see below. IMAGING: Knee x-ray: Report pending ASSESSMENT & PLAN: This is a 64-year-old female with postop day 1 for elective left total knee arthroplasty. PROBLEMS: 1.Postop day 1 for elective left total knee arthroplasty: Management as per orthopedic surgery, pain control DVT prophylaxis, activity, disposition perioperative management deferred to orthopedics. 2. Fibromyalgia: Continue with Prozac 3. Hypertension: Continue with propranolol and lisinopril BP well-controlled 4. Hypothyroidism: Continue with Synthroid 5. Dyslipidemia: Continue simvastatin 6. Anemia: mild macrocytic anemia, continue with iron supplementation as well as B12 supplementation DVT PROPHYLAXIS: Patient is started on anticoagulation per orthopedic surgery Medically stable for discharge home whenever cleared by orthopedic surgery okay to resume her home meds as previously ordered VS, I&O, 24H, [facility] Vital Signs/I&O Vital Signs Date Time Temp Pulse Resp B/P (MAP) Pulse Ox O2 Delivery O2 Flow Rate FiO2 04/03/19 08:46 63 125/58 04/03/19 07:32 18 04/03/19 06:00 97.7 97 04/02/19 13:20 2 I&O- Last 24 Hours up to 6 AM 04/03/19 06:00 Intake Total 2880 ml Output Total 700 ml Balance 2180 ml Laboratory Data 24H LABS Laboratory Tests 2 04/03/19 06:20: Nucleated Red Blood Cells % (auto) 0.0, Anion Gap 5L, Glomerular Filtration Rate > 60.0, Blood Urea Nitrogen 15, Creatinine 0.97, Sodium Level 142, Potassium Level 3.7, Chloride Level 106, Carbon Dioxide Level 31, Calcium Level 8.7L CBC/BMP Laboratory Tests 04/03/19 06:20 Red Blood Count 3.37 L, Mean Corpuscular Volume 100.3 H, Mean Corpuscular Hemoglobin 32.6, Mean Corpuscular Hemoglobin Concent 32.5, Red Cell Distribution Width 11.2 L, Calcium Level 8.7 L ANDREIA TRUONG MD Apr 03, 2019 10:20
--- NOTE | 2019-04-03 13:54 | IPN ---
DATE: 04/03/2019 Mrs. Schwartz's insurance does not cover Xarelto. This is a progress no in regards to the necessity of deep venous thrombosis (DVT) prophylaxis postoperatively with Xarelto and thromboembolic deterrent stockings (TEDS). Literature is very clear about the increased risk of DVT postoperatively when not using Xarelto and WILLIE stockings. Hopefully we will get this approved for her as this is very important to her postop course.
[2019-04-03] MEDS ORDERED: RIVAROXABAN 10 MG TAB (XARELTO) PO SCH (18:00)
== END 2019-04-03 13:30 | disposition home or self-care (01) | DRG 470 ==
LOC: M OR 07:04 → M MS5PR 14:30
PROVIDERS: ADMIT Orthopaedic Surgery; ATTEND Orthopaedic Surgery
PROC: 0SRD0J9 Replacement of Left Knee Joint with Synthetic Substitute, Cemented, Open Approach (ICD-10-PCS; principal; 2019-04-02 09:45)
DX: M17.12 Unilateral primary osteoarthritis, left knee (principal); E03.9 Hypothyroidism, unspecified; I10 Essential (primary) hypertension; E55.9 Vitamin D deficiency, unspecified; E53.8 Deficiency of other specified B group vitamins; F32.9 Major depressive disorder, single episode, unspecified; E78.00 Pure hypercholesterolemia, unspecified; Z91.013 Allergy to seafood; Z96.651 Presence of right artificial knee joint; M79.7 Fibromyalgia; E78.5 Hyperlipidemia, unspecified; D64.9 Anemia, unspecified

== ENCOUNTER → 2019-06-18 | Outpatient (CLI) | payer OTHER ==
[~2019-06-18] MED LIST changes: -ACETAMINOPHEN 500 MG TAB PO ONE; -LR 1,000 ML IV ONE; +LUTE2000 PO; -MIDAZOLAM INJ 2 MG/2 ML VIAL (J2250) IV SCH; +XARE10TA PO; -fentaNYL 100 MCG/2 ML INJECTION (J3010) IV SCH
[2019-06-18 12:51] LABS: HEMATOCRIT 37.8 % (36.0-47.0); MEAN CORPUSCULAR HEMOGLOBIN 30.8 pg (27.0-33.0); MEAN CORPUSCULAR HGB CONC 31.7 g/dl (32.0-36.5); MEAN CORPUSCULAR VOLUME 96.9 fl (80.0-96.0); PLATELET COUNT, AUTOMATED 247 10^3/uL (150-450)
[2019-06-18 13:24] LABS: ALBUMIN 3.8 GM/DL (3.2-5.2); ALT/SGPT 13 U/L (12-78); BILIRUBIN,TOTAL 0.5 MG/DL (0.2-1.0); BLOOD UREA NITROGEN 15 MG/DL (7-18); CARBON DIOXIDE LEVEL 29 MEQ/L (21-32); CHLORIDE LEVEL 105 MEQ/L (98-107); CHOLESTEROL LEVEL 175 MG/DL (<200); CHOLESTEROL RISK RATIO 2.868 (<5); FREE T4 1.16 NG/DL (0.76-1.46); GLOMERULAR FILTRATION RATE > 60.0 (>45); GLUCOSE, FASTING 93 MG/DL (70-100); HDL CHOLESTEROL 61 MG/DL (>40); LDL CHOLESTEROL 94 MG/DL (<100); NON-HDL-C 114 MG/DL; POTASSIUM SERUM 4.3 MEQ/L (3.5-5.1); SODIUM LEVEL 143 MEQ/L (136-145); THYROID STIMULATING HORMONE 0.987 uIU/ML (0.358-3.740); TOTAL PROTEIN 6.5 GM/DL (6.4-8.2); TRIGLYCERIDES LEVEL 100 MG/DL (<150); VITAMIN B12 LEVEL 1624 PG/ML (247-911)
== END ==
LOC: M LAB 11:31
PROVIDERS: ATTEND General Practice
DX: E78.00 Pure hypercholesterolemia, unspecified (principal); E03.9 Hypothyroidism, unspecified; D64.9 Anemia, unspecified; E53.8 Deficiency of other specified B group vitamins

== ENCOUNTER → 2019-11-07 | Outpatient (REF) | payer OTHER ==
[~2019-11-07] MED LIST changes: -SIMV40TA2 PO; +SIMV40TA20 PO
== END ==
LOC: M LAB REF 18:39
PROVIDERS: ATTEND Dermatology
DX: L82.0 Inflamed seborrheic keratosis (principal); L85.9 Epidermal thickening, unspecified

== ENCOUNTER → 2020-01-29 | Outpatient (CLI) | payer OTHER ==
[2020-01-29 09:57] LABS: HEMATOCRIT 38.9 % (36.0-47.0); HEMOGLOBIN 12.6 g/dl (12.0-15.5); MEAN CORPUSCULAR HEMOGLOBIN 31.7 pg (27.0-33.0); MEAN CORPUSCULAR HGB CONC 32.4 g/dl (32.0-36.5); PLATELET COUNT, AUTOMATED 246 10^3/uL (150-450); RED BLOOD COUNT 3.97 10^6/uL (4.00-5.40); WHITE BLOOD COUNT 3.7 10^3/uL (4.0-10.0)
[2020-01-29 10:07] LABS: ALT/SGPT 26 U/L (12-78); BILIRUBIN,TOTAL 0.5 MG/DL (0.2-1.0); BLOOD UREA NITROGEN 19 MG/DL (7-18); CALCIUM LEVEL 8.8 MG/DL (8.8-10.2); CARBON DIOXIDE LEVEL 33 MEQ/L (21-32); CHLORIDE LEVEL 107 MEQ/L (98-107); CHOLESTEROL LEVEL 179 MG/DL (<200); CHOLESTEROL RISK RATIO 2.887 (<5); CREATININE FOR GFR 0.89 MG/DL (0.55-1.30); GLOMERULAR FILTRATION RATE > 60.0 (>45); GLUCOSE, FASTING 87 MG/DL (70-100); HDL CHOLESTEROL 62 MG/DL (>40); LDL CHOLESTEROL 97 MG/DL (<100); NON-HDL-C 117 MG/DL; POTASSIUM SERUM 4.4 MEQ/L (3.5-5.1); SODIUM LEVEL 142 MEQ/L (136-145); TRIGLYCERIDES LEVEL 102 MG/DL (<150)
[2020-01-29 10:08] LABS: ALBUMIN 3.7 GM/DL (3.2-5.2); TOTAL PROTEIN 6.2 GM/DL (6.4-8.2)
[2020-01-29 10:10] LABS: VITAMIN B12 LEVEL 1011 PG/ML (247-911)
== END ==
LOC: M LAB 08:40
PROVIDERS: ATTEND General Practice
DX: E78.00 Pure hypercholesterolemia, unspecified (principal); E03.9 Hypothyroidism, unspecified; D64.9 Anemia, unspecified; E55.9 Vitamin D deficiency, unspecified; D32.9 Benign neoplasm of meninges, unspecified